=== PATIENT | female | born 1980 | race Caucasian/White ===

== ENCOUNTER 2023-07-24 12:04 | Outpatient (CLI) | payer OTHER ==
[~2023-07-24 12:04] MED LIST: CIPRO500 MG; PRENA-CAP CAPSU1 CAP PO
== END 2023-07-24 12:06 | disposition home or self-care (01) ==
LOC: SONOGRAMA 12:04
PROVIDERS: ATTEND Pathology Anatomic Pathology & Clinical Pathology
DX: D34 Benign neoplasm of thyroid gland (principal); E07.89 Other specified disorders of thyroid; E04.1 Nontoxic single thyroid nodule